=== PATIENT | male | born 1940 | race Caucasian/White ===

== ENCOUNTER → 2017-01-12 | Outpatient (CLI) | payer MEDICARE | END | disposition home or self-care (01) | LOC: PCVCCLINIC 11:15 | PROVIDERS: ATTEND Internal Medicine | DX: I10 Essential (primary) hypertension (principal); I25.10 Atherosclerotic heart disease of native coronary artery without angina pectoris; E11.9 Type 2 diabetes mellitus without complications; E78.5 Hyperlipidemia, unspecified; I49.3 Ventricular premature depolarization; I45.10 Unspecified right bundle-branch block; G47.33 Obstructive sleep apnea (adult) (pediatric); Z95.1 Presence of aortocoronary bypass graft; Z79.82 Long term (current) use of aspirin; Z79.899 Other long term (current) drug therapy; Z87.891 Personal history of nicotine dependence; Z79.84 Long term (current) use of oral hypoglycemic drugs | CPT/HCPCS: 80061; 93005; G0463 ==

== ENCOUNTER → 2017-07-18 | Outpatient (CLI) | payer MEDICARE | END | disposition home or self-care (01) | LOC: PCVCCLINIC 11:23 | PROVIDERS: ATTEND Internal Medicine | DX: I25.10 Atherosclerotic heart disease of native coronary artery without angina pectoris (principal); I10 Essential (primary) hypertension; E78.5 Hyperlipidemia, unspecified; D47.2 Monoclonal gammopathy; G47.33 Obstructive sleep apnea (adult) (pediatric); Z87.891 Personal history of nicotine dependence; Z79.82 Long term (current) use of aspirin; Z79.899 Other long term (current) drug therapy | CPT/HCPCS: 80061; 93005; G0463 ==

== ENCOUNTER → 2018-01-23 | Outpatient (CLI) | payer MEDICARE | END | disposition home or self-care (01) | LOC: PCVCCLINIC 10:45 | DX: I25.10 Atherosclerotic heart disease of native coronary artery without angina pectoris (principal); I10 Essential (primary) hypertension; E78.5 Hyperlipidemia, unspecified; D47.2 Monoclonal gammopathy; G47.33 Obstructive sleep apnea (adult) (pediatric); Z87.891 Personal history of nicotine dependence; Z79.82 Long term (current) use of aspirin; Z79.84 Long term (current) use of oral hypoglycemic drugs; Z79.899 Other long term (current) drug therapy | CPT/HCPCS: 80061; 93005; G0463 ==

== ENCOUNTER → 2018-07-25 | Outpatient (CLI) | payer MEDICARE | END | disposition home or self-care (01) | LOC: PCVCCLINIC 11:00 | PROVIDERS: ATTEND Internal Medicine | DX: I25.10 Atherosclerotic heart disease of native coronary artery without angina pectoris (principal); I10 Essential (primary) hypertension; E78.5 Hyperlipidemia, unspecified; D47.2 Monoclonal gammopathy; G47.33 Obstructive sleep apnea (adult) (pediatric); J44.9 Chronic obstructive pulmonary disease, unspecified; E11.9 Type 2 diabetes mellitus without complications; K21.9 Gastro-esophageal reflux disease without esophagitis; R79.82 Elevated C-reactive protein (CRP); Z87.891 Personal history of nicotine dependence; Z79.82 Long term (current) use of aspirin; Z80.9 Family history of malignant neoplasm, unspecified | CPT/HCPCS: 36415; 80061; 93005; G0463 ==

== ENCOUNTER → 2019-01-27 | Outpatient (CLI) | payer MEDICARE ==
[~2019-01-27] MED LIST: REGADENOSON 0.4 MG/5 ML DISP.SYRIN. IV ONE
--- NOTE | 2019-01-27 09:46 | PCVCIMAG ---
APPROVED REPORT Study performed: 01/27/2019 08:02:45 EXAM: Comprehensive 2D, Doppler, and color-flow Echocardiogram Patient Location: Echo lab Status: routine BSA: 2.29 HR: 57 bpmBP: 122/78 mmHg Rhythm: Bradycardia, RBBB Other Information Study Quality: Adequate Risk Factors: Cardiac Risk Factors: HTN Indications CAD hx CABG, RBBB 2D Dimensions IVSd: 15.30 (7-11mm) LVDd: 47.69 mm PWd: 13.28 (7-11mm)Ascending Ao: 37.40 (22-36mm) LVDs: 33.19 (25-40mm) Left Atrium: 54.05 (27-40mm) Aortic Root: 37.67 mm LV Single Plane 4CH: 52.97 % LV Single Plane 2CH: 51.78 % Biplane EF: 52.6 % Volumes Left Atrial Volume (Systole) Single Plane 4CH: 97.67 mLSingle Plane 2CH: 107.99 mL LA ESV Index: 46.00 mL/m2 Aortic Valve AoV Peak [place].: 1.17 m/s AO Peak Gr.: 5.49 mmHgLVOT Max P.53 mmHg LVOT Max V: 0.94 m/s AI Vmax: 4.68 m/s AI [place]: 1.89 m/s2 AI PHT: 716.97 ms Mitral Valve E/A Ratio: 1.7 MV Decel. Time: 226.32 ms MV E Max [place].: 0.75 m/s MV A [place].: 0.45 m/s IVRT: 114.19 ms Pulmonary Valve PV Peak [place].: 0.81 m/sPV Peak Gr.: 2.63 mmHg Pulmonary Vein P Vein S: 0.30 m/sP Vein A: 0.47 m/s P Vein D: 0.45 m/sP Vein A Dur.: 124.6 msec P Vein S/D Ratio: 0.67 Tricuspid Valve TR Peak [place].: 2.39 m/s TR Peak Gr.: 22.79 mmHg TV Vmax: 0.51 m/s Left Ventricle The left ventricle is normal size. There is normal LV segmental wall motion. There is normal left ventricular wall thickness. Left ventricular systolic function is normal. The left ventricular ejection fraction is within the normal range. LVEF is 50-55%. Moderate diastolic dysfunction is present (pseudonormal filling). Right Ventricle The right ventricle is normal size. The right ventricular systolic function is normal. Atria Left atrium is moderately dilated. The right atrium size is normal. Aortic Valve The aortic valve is mildly sclerotic Mild aortic regurgitation. There is no aortic valvular stenosis. Mitral Valve The mitral valve is normal in structure. Trace mitral regurgitation. No evidence of mitral valve stenosis. Tricuspid Valve The tricuspid valve is normal in structure. Mild tricuspid regurgitation with PAP of 30 mmHg. Pulmonic Valve The pulmonary valve is normal in structure. There is no pulmonic valvular regurgitation. Great Vessels The aortic root is normal in size. IVC is normal in size and collapses >50% with inspiration. Pericardium There is no pericardial effusion. There is no pleural effusion. <Conclusion> Left ventricular systolic function is normal. There is normal LV segmental wall motion. LVEF is 50-55%. Moderate diastolic dysfunction The aortic valve is mildly sclerotic. Mild aortic regurgitation, no stenosis. The mitral valve is normal in structure. Trace mitral regurgitation. Mild tricuspid regurgitation with pulmonary artery pressure of 30 mmHg. There is no pericardial effusion.
--- NOTE | 2019-01-27 16:58 | PCVCIMAG ---
APPROVED REPORT Imaging Protocol: Rest Tc-99m/Stress Tc-99m 1 day Study performed: 01/27/2019 09:00:35 Indication: Chest pain Patient Location: Out-Patient Stress Nurse: Anna Josue RN, Phylicia Walker RN MD Tech:Leah Arthur [facility] Ht: 6 ft 1 in Wt: 231 lbs BSA: 2.29 m2 HR: 57 bpm BP: 185/74 mmHg BMI: 30.4 Rhythm: Sinus Bradycardia, RBBB Medical History Medical History: Hyperlipidemia, HTN, Former Smoker, CAD Medications: ASA, Irbesartan, Metformin, Metoprolol, Omeprazole, Simvastatin, 02 NC PRN Allergies: No known drug allergies Cardiac Risk Factors: Age Previous Cardiac Procedures: 2009 CABG Pretest Chest Pain Characteristics: No chest pain Exercise History: Sedentary Physical Disabilities: Lung status Meds Held (24 hrs): Metoprolol Resting Data Rest SPECT myocardial perfusion imaging was performed in supine position 45 minutes following the intravenous injection of 9.4 mCi of Tc-99m Sestamibi. Time of rest injection: 0900 Date: 01/27/2019 Administration Route: IV Administration Site: Right AC Pharmacologic Stress Pharmacologic stress test was performed by injecting Regadenoson 0.4 mg IV push over 10-15 seconds immediately followed by the intravenous injection of 35.1 mCi of Tc-99m Sestamibi. Time of stress injection: 1015 Date: 01/27/2019 Administration Route: IV Administration Site: Right AC Gated Stress SPECT was performed 45 minutes after stress injection. The images were gated to evaluate regional wall motion and calculate left ventricular ejection fraction. Stress Test Details Stress Test: Pharmacologic stress testing performed using 0.4 mg of regadenoson per 5 mL given IV over 10 seconds. Reason for pharmacologic stress test: prior submaximal stress echo d/t lung status. HRMax Heart Rate (APMHR): 140 bpm Resting HR: 57 bpmTarget HR (85% APMHR): 119 bpm Max HR Achieved: 76 bpm % of APMHR: 54 Recovery HR: 65 bpm BP Resting BP: 185/74 mmHg Max BP: 171/73 mmHg Recovery BP: 146/66 mmHg ECG Resting ECG: Sinus Bradycardia, RBBB, inferior infarct, old Stress ECG: Sinus Rhythm, RBBB, inferior infarct, old ST Change: None Maximum ST Deviation: 0 mm Arrhythmia: None Recovery ECG: Sinus Rhythm, RBBB, inferior infarct, old Recovery ST Change: None Recovery ST Deviation: 0 mm Recovery Arrhythmia: None Clinical Reason for Termination: Completed protocol Stress Symptoms: Dyspnea Symptoms resolved during recovery. Stress ECG Conclusion Clinical: Non-ischemic ECG: Non-ischemic Study Quality Study: Good Study Data Post stress, the left ventricular ejection was 60%.. SSS: 6 SRS: 3 SDS: 3 TID = 1.04. Perfusion Medium sized area of moderate reversible ischemia involving the mid/basal inferolateral left ventricle consistent with a circumflex distribution. Wall Motion Normal left ventricular size and function with no regional wall motion abnormalities. Nuclear Conclusion Medium sized area of moderate reversible ischemia involving the mid/basal inferolateral left ventricle consistent with a circumflex distribution. Post stress, the left ventricular ejection was 60%. No prior study available for comparison. Interpreted by: Bret Castle MD Electronically Approved: 01/27/2019 14:20:09 <Conclusion> Clinical: Non-ischemic ECG: Non-ischemic
== END ==
LOC: PCVCIMAG 07:57
PROVIDERS: ATTEND Internal Medicine
DX: I25.10 Atherosclerotic heart disease of native coronary artery without angina pectoris (principal); I42.9 Cardiomyopathy, unspecified; R07.9 Chest pain, unspecified; E78.5 Hyperlipidemia, unspecified; D47.2 Monoclonal gammopathy; Z87.891 Personal history of nicotine dependence
CPT/HCPCS: 36415; 78452; 80061; 93017; 93306; A9500; G0463; J2785